=== PATIENT | male | born 1955 | race Caucasian/White ===

== ENCOUNTER → 2025-04-20 07:20 | Outpatient (REF) | payer OTHER, SELFPAY | LOC: RCS 07:20 | PROVIDERS: ATTENDING PHYSICIAN Internal Medicine Cardiovascular Disease; FAMILY PHYSICIAN Internal Medicine | DX: I35.0 Nonrheumatic aortic (valve) stenosis (principal) | CPT/HCPCS: 93306 ==

== ENCOUNTER → 2025-05-24 07:53 | Outpatient (REF) | payer OTHER, SELFPAY | LOC: HWRCS 07:53 | PROVIDERS: ATTENDING PHYSICIAN Internal Medicine Cardiovascular Disease; FAMILY PHYSICIAN Internal Medicine | DX: R07.89 Other chest pain (principal) | CPT/HCPCS: 78452; 93017; A9500; J2785 ==